=== PATIENT | female | born 1985 | race Caucasian/White ===

== ENCOUNTER 2025-01-21 11:51 | Emergency (ER) | payer SELFPAY ==
[2025-01-21] MEDS ORDERED: ALPRAZolam 0.5 MG TAB ONE (12:27)
[2025-01-21] MEDS ORDERED: Lidocaine 1% (PF) 30 ML VIAL ONE (12:27)
== END 2025-01-21 12:57 | disposition home or self-care (01) ==
LOC: CSHERS 11:51
DX: L02.411 Cutaneous abscess of right axilla (principal)
CPT/HCPCS: 10060